=== PATIENT | female | born 1990 | race Caucasian/White ===

== ENCOUNTER 2017-03-29 19:17 | Observation (INO) | payer OTHER ==
[~2017-03-29 19:17] MED LIST: HYDR1TAB91 PO; IBUP-1152 PO; PREN-99 PO
--- NOTE | 2017-04-08 09:43 | PCM.DC.MED ---
Discharge Summary Date of Service Apr 08, 2017 Dates of Hospitalization Date of Hospital Admission Mar 29, 2017 at 19:17 Date of Discharge: Mar 29, 2017 Providers: Admitting Physician: Bibi Vizcarra MD Primary Care Physician: Bibi Vizcarra MD Attending Physician: Bibi Vizcarra MD Diagnosis at Time of Discharge Diagnosis at Time of Discharge Not in labor Hospital Course This is a late third trimester multiparous patient who came in for a labor check. I have no current access to the nurse's notes. I have no recollection of this particular event. She has had some chest pain and workup for PE around the same time, so far negative. She was discharged in stable condition, not in labor. Discharge Medications Discharge Medications Vit/Fe Fumarate/Fa-Expunged Drug, Do ( Multivitamins-Expunged Drug, Do Not) 1 Each Tablet 1 EACH PO DAILY (Reported) As needed Hydrocod/APAP-Expunged, Do Not Renew! (Hydrocod/APAP-Expunged, Do Not Renew!) 1 Ea Tablet 1-2 EA PO Q3 PRN PRN For Pain Prescribed by: NENA VIZCARRA MD IBUPROFEN-Expunged Drug, Do Not Renew! (IBUPROFEN-Expunged Drug, Do Not Renew!) 800 Mg Tablet 800 MG PO Q6 PRN PRN For Pain Prescribed by: MD Carmita JOHN H Edwin MD Apr 08, 2017 09:43
[2017-04-29] MEDS ORDERED: HYDR-4003 PO (10:13)
[2017-04-29] MEDS ORDERED: IBUP-1827 PO (10:13)
== END 2017-03-29 19:56 | disposition home or self-care (01) ==
LOC: INTOOBSV 19:17 → FBC 19:17
PROVIDERS: ADMIT Family Medicine; ATTEND Family Medicine
DX: O60.03 Preterm labor without delivery, third trimester (principal); Z3A.00 Weeks of gestation of pregnancy not specified

== ENCOUNTER 2017-03-29 20:05 | Emergency (ER) | payer OTHER ==
[2017-03-29 20:31] VITALS: BP 126/72; PULSE 100; RESP 16; O2SAT 98
--- NOTE | 2017-03-29 20:39 | ED.REPORT ---
HPI-Chest Pain Under 40 Date of Service Mar 29, 2017 ED Provider: Mynor Gilbert MD A 26 year old, 36 week () female presents to the ED with intermittent, left anterior chest pain that began yesterday. The pain is exacerbated with exertional movements including reaching or lifting. Her pain has persisted since initial onset yesterday. She also reports experiencing SOB and a mild cough that have been present intermittently for the past few weeks. She denies any previous similar symptoms. Per nursing note, the patient admits to a recent extended road trip. Patient denies any new onset lower extremity edema or fever and denies pain with inspiration. Patient had a reassuring pre- term labor check this afternoon. Nursing Notes Stated Complaint: CHEST DISCOMFORT Chief Complaint: Chest Pain Nursing Notes Reviewed: Yes Allergies: Coded Allergies: Cephalosporins (Verified Allergy, Unknown, 03/29/17) Scheduled Vit/Fe Fumarate/Fa-Expunged Drug, Do ( Multivitamins-Expunged Drug, Do Not) 1 Each Tablet 1 EACH PO DAILY Scheduled PRN Hydrocod/APAP-Expunged, Do Not Renew! (Hydrocod/APAP-Expunged, Do Not Renew!) 1 Ea Tablet 1-2 EA PO Q3 PRN PRN For Pain IBUPROFEN-Expunged Drug, Do Not Renew! (IBUPROFEN-Expunged Drug, Do Not Renew!) 800 Mg Tablet 800 MG PO Q6 PRN PRN For Pain General Time Seen by MD: 20:37 Chief Complaint Chest pain Hx Obtained From: Patient Arrived By: Walk-in Sudden in Onset?: No Symptom Duration: Intermittent Location: : Chest left Quality: Painful Radiation: : Does not radiate Migration/Movement: Reports: None Severity: Current: Mild Severity: Maximum: Moderate Associated with: Reports: Cough, non-productive, Shortness of breath, Denies: Fever Pertinent Negative: Pt denies other symptoms Recent Healthcare: No recent hospitalization, Recent doctor visit Past Medical History Past Medical History Notes: PCP: Dr. Bola Vizcarra Past Medical History 36 weeks () Past Surgical History None reported. Smoking History Never Smoker Social History Alcohol Use: Denies alcohol use Drug Use: Denies drug use Other Social History: Good social support, , Local resident Ambulatory Status Independent Review of Systems Constitutional: Denies: Fever Respiratory: Reports: Non-productive cough, Shortness of breath Cardiovascular: Reports: Chest pain, Denies: Edema Complete sys rev & neg: except as marked. Physical Exam Initial Vital Signs Vital Signs (First) Date Time Temp Pulse Resp B/P Pulse Ox O2 Delivery O2 Flow Rate FiO2 03/29/17 20:31 36.7 100 16 126/72 98 Room Air Initial VS: Reviewed Head / Eyes: Atraumatic, Normocephalic, PERRL Extremities: Vascular intact, Neuro intact, No swelling, No tenderness Neurologic: Alert, Oriented, Nonfocal Psychiatric: Mood/affect normal, Behavior normal, Normal thought content General/Constitutional: Awake, Alert, No acute distress Respiratory / Chest: Atraumatic, Breath sounds NL, Breath sounds = bilat, No respiratory distress Cardiovascular: Heart rate NL, Regular rhythm, Heart sounds NL, No gallop, No murmurs, No rubs Abdomen: Atraumatic, Soft, Non-tender, BS normoactive Gravid abdomen Skin: Atraumatic, Color NL, Warm Color / Condition: Positive: Diaphoresis present (Mild) Interpretation & Diagnostics Lab Results Interpretation Result Diagram: 03/29/17210303/29/172103 Test 03/29/17 21:04 White Blood Count 8.9th/mm3 (3.8-10.1) Red Blood Count 4.09mil/mm3 (3.90-5.20) Hemoglobin 12.8g/dL (12.0-15.6) Hematocrit 36.0% (35.0-46.0) Mean Corpuscular Volume 88.0fL (81-100) Mean Corpuscular Hemoglobin 31.3pg (27.0-35.0) Mean Corpuscular Hemoglobin Concent 35.6% (32.0-37.0) Red Cell Distribution Width 13.0% (12.3-15.4) Platelet Count 170bil/L (150-400) Neutrophils (%) (Auto) 64.0% (40-74) Lymphocytes (%) (Auto) 27.6% (14-46) Monocytes (%) (Auto) 7.1% (4-12) Eosinophils (%) (Auto) 1.0% (0-5) Basophils (%) (Auto) 0.1% (0-3) Sodium Level 137mEq/L (134-144) Potassium Level 3.7mEq/L (3.5-5.2) Chloride Level 101mEq/L (97-108) Carbon Dioxide Level 19mmol/L (18-29) Blood Urea Nitrogen 4mg/dL (6-20) Creatinine 0.37mg/dL (0.57-1.00) Estimat Glomerular Filtration Rate 298mL/min (>59) Glucose Level 89mg/dL (60-99) Calcium Level 8.8mg/dL (8.5-10.1) Magnesium Level 1.8mg/dL (1.6-2.6) Total Bilirubin 0.2mg/dL (0.0-1.2) Aspartate Amino Transf (AST/SGOT) 22U/L (0-50) Alanine Aminotransferase (ALT/SGPT) 18U/L (0-32) Alkaline Phosphatase 128U/L (25-150) Troponin T 0.010ug/L (0.0-0.011) Total Protein 6.2g/dL (6.4-8.4) Albumin 3.6g/dL (3.4-5.0) ECG Interpretation ECG Interpretation: Sinus tachycardia Rate 102 bpm Time: 18:52 Interpreted by: ED physician CT Chest Interpretation IMPRESSION: No evidence of pulmonary embolism or dissection. Trace left pleural effusion. Mild splenomegaly, not fully included. Study type: CT pulm angiogram Interpretation / Wet Read by: Interpret - Radiologist ([facility]) Re-Eval/Medical Decision Re-Evaluation/Progress : Time of Eval: 22:45 Patient Status: Condition improved Re-Evaluation/Progress Note: Patient condition is re-evaluated. She is informed of her current results and the intended treatment plan. All questions are addressed. She understands and agrees with the plan. Counseled Regarding: Diagnosis, Lab results, Need for follow-up, When/why to return to ED Discharge & Departure Primary Impression: Chest pain Chest pain type: pleurodynia Qualified Code: R07.81 - Pleurodynia Additional Impression: Weeks of gestation: 36 weeks Qualified Code: Z3A.36 - 36 weeks gestation of Disposition: Home Discharge Condition All VS Reviewed: Yes Condition: Improved Patient Instructions: Chest Pain (ED), (ED) Additional Instructions: Emergency Department evaluation included interview, examination labs ECG and CT scan of chest. No serious cause for chest pain is identified tonight. It is safe to go home and use acetaminophen as needed for pain. Follow-up with your doctor next week. Return to emergency department for increasing shortness of breath fevers frequent vomiting. Referrals: Bibi Vizcarra MD (PCP) Scribe Attestation Portions of this note were transcribed by Jesus Castle. I, Dr. Gilbert, personally performed the history, physical exam and medical decision-making; I reviewed and confirmed the accuracy of the information in the transcribed note. Signed by: Jesus Castle, 03/29/17. copies to: Bibi Vizcarra MD, Donald L MD Mar 29, 2017 20:39 JESUS CASTLE Mar 29, 2017 20:48
[2017-03-29] MEDS ORDERED: 0.9% Sodium Chloride 1,000 ML IV ONE (20:49)
[2017-03-29 21:13] LABS: BASOPHILS % (AUTO) 0.1 % (0-3); MONOCYTES % (AUTO) 7.1 % (4-12); Mean Corpuscular Hemoglobin 31.3 pg (27.0-35.0); Platelet Count 170 bil/L (150-400)
[2017-03-29 21:40] LABS: TROPONIN T 0.01 ug/L (0.0-0.011)
[2017-03-29 21:51] LABS: Magnesium 1.8 mg/dL (1.6-2.6)
[2017-03-29 23:43] VITALS: BP 108/61; PULSE 87; RESP 18; O2SAT 98
--- NOTE | 2017-03-30 08:26 | DRSVH ---
PROCEDURE: CT ANGIO CHEST PULMONARY EMBOLISM ([id number]) INDICATIONS: chest pain TECHNIQUE: After the administration of intravenous contrast, 2 mm thick sections acquired from the pulmonary api jos to the posterior costophrenic angles. 3-dimensional maximum intensity projection (MIP) coronal a nd sagittal reformats were then acquired through the thorax. For radiation dose reduction, the follo wing was used: automated exposure control, adjustment of mA and/or kV according to patient size. COMPARISON: None. FINDINGS: Image quality: Excellent. Pulmonary arteries: Pulmonary arteries are normal in size, and demonstrate no intraluminal filling d efects to suggest central pulmonary embolism. Lungs and pleura: Lungs are clear. Trace left pleural effusions. No pneumothorax. Central and perip heral airways are patent. Mediastinum: Heart size is normal, without pericardial effusion. No mediastinal or hilar adenopathy . Thoracic aorta is normal in caliber and enhancement. Esophagus is normal in caliber, without hiat al hernia. Bones and chest wall: No suspicious bony lesions. Ribs and thoracic spine appear intact throughout. Thyroid gland is normal where seen. No axillary or supraclavicular adenopathy. Abdomen: Possible splenomegaly. Otherwise upper abdominal solid organs appear normal in the early art erial phase of enhancement. IMPRESSION: 1. No CT evidence of acute pulmonary embolus. 2. Trace left pleural effusion. 3. Possible splenomegaly. 4. There are no discrepancies with the preliminary report. Dictated by: Justin Khan M.D. on 03/30/2017 at 8:20 Approved by: Justin Khan M.D. on 03/30/2017 at 8:25
== END 2017-03-29 23:43 | disposition home or self-care (01) ==
LOC: SED 20:05
DX: O99.89 Other specified diseases and conditions complicating pregnancy, childbirth and the puerperium (principal); R07.81 Pleurodynia; R05 Cough; Z3A.36 36 weeks gestation of pregnancy; Z88.1 Allergy status to other antibiotic agents
CPT/HCPCS: 36415; 71275; 80053; 83735; 84484; 85025; 93005; 96360; 99285; J7030; Q9967

== ENCOUNTER 2017-04-04 18:29 | Emergency (ER) | payer OTHER ==
[~2017-04-04] VITALS: Ht 157.5 cm; Wt 79.5 kg
[2017-04-04 18:34] VITALS: BP 125/72; PULSE 112; RESP 16; O2SAT 98
--- NOTE | 2017-04-04 18:42 | ED.REPORT ---
HPI-Chest Pain Under 40 Date of Service Apr 04, 2017 ED Provider: Aman Loving DO This is a very pleasant 26-year-old female who was referred to the emergency department to have bilateral lower extremity venous duplex Dopplers performed. Evidently she has had exertional dyspnea and exertional tachycardia for the last several weeks. She is in the third trimester of an otherwise uncomplicated . She was seen a few days ago here and underwent CT imaging to rule out pulmonary emboli. Pulmonary emboli was ruled out. She had an echocardiogram today. The echocardiogram showed a small pericardial effusion as well as mild D shape flattening of the right ventricle. No evidence of tamponade. Dr. Vizcarra's office reached her and sent her in to get the ultrasound. She denies having any chest pain however she does have tachycardia and dyspnea when she gets up and walks. She has not had a cough. She has not had pleuritic pain. She has not had any hemoptysis. Currently she denies feeling any contractions or any other signs of labor. Nursing Notes Stated Complaint: CHEST PAIN,SHORTNESS OF BREATH Chief Complaint: Respiratory Complaints Nursing Notes Reviewed: Yes Allergies: Coded Allergies: Cephalosporins (Verified Allergy, Unknown, 03/29/17) Scheduled Vit/Fe Fumarate/Fa-Expunged Drug, Do ( Multivitamins-Expunged Drug, Do Not) 1 Each Tablet 1 EACH PO DAILY Scheduled PRN Hydrocod/APAP-Expunged, Do Not Renew! (Hydrocod/APAP-Expunged, Do Not Renew!) 1 Ea Tablet 1-2 EA PO Q3 PRN PRN For Pain IBUPROFEN-Expunged Drug, Do Not Renew! (IBUPROFEN-Expunged Drug, Do Not Renew!) 800 Mg Tablet 800 MG PO Q6 PRN PRN For Pain General Time Seen by MD: 18:41 Chief Complaint Chest pain Hx Obtained From: Patient Arrived By: Walk-in Sudden in Onset?: No Onset Occurred: 1 week ago Symptom Duration: Intermittent Location: : Substernal Quality: Painful Radiation: : Does not radiate Severity: Current: Moderate Severity: Maximum: Moderate Recent Healthcare: Recent doctor visit Similar Sx Previous: Yes Risk Factors )( CAD Risk Stratification Risk factors reviewed TAD Risk Stratification Risk factors reviewed )( PE Risk Stratification Risk factors reviewed HEART Score HEART for MACE: Low index of susp (0), Normal ECG (0), No risk factors known (0 ) HEART for MACE Score: 0-3 (low risk 0.9%-1.7%) Past Medical History Past Medical History Notes: PCP: Dr. Bola Vizcarra Past Medical History 37 weeks Past Surgical History None reported Smoking History Never Smoker Social History Alcohol Use: Denies alcohol use Drug Use: Denies drug use Other Social History: Good social support, , Local resident Ambulatory Status Independent Review of Systems Denies pain with inspiration Constitutional: Denies: Fever Respiratory: Reports: Shortness of breath Cardiovascular: Reports: Dyspnea on exertion, Palpitations, Denies: Orthopnea, Parox nocturnal dyspnea, Syncope GI: Denies: Abdominal pain, Diarrhea Musculoskeletal: Denies: Extremity swelling Skin: Denies Bruising, Denies Diaphoresis Neurologic: Denies: Abnormal movement, Bladder dysfunction Psychiatric: Denies: Agitation Complete sys rev & neg: except as marked. Physical Exam Initial Vital Signs Vital Signs (First) Date Time Temp Pulse Resp B/P Pulse Ox O2 Delivery O2 Flow Rate FiO2 04/04/17 18:34 36.6 112 16 125/72 98 Room Air Initial VS: Reviewed Head / Eyes: Atraumatic, Normocephalic Neck: Supple, Full range of motion Extremities: Vascular intact, Neuro intact Skin: Warm, Dry, No cyanosis Neurologic: Alert, Oriented, Nonfocal Psychiatric: Mood/affect normal, Behavior normal General/Constitutional: Awake, Alert Respiratory / Chest: Atraumatic, Breath sounds NL, Breath sounds = bilat Cardiovascular: Regular rhythm, Heart sounds NL Heart Rate / Rhythm: Positive: Tachycardia No lower extremity edema Abdomen: Atraumatic, Soft Gravid uterus Interpretation & Diagnostics US VENOUS LEG BILATERALLY: IMPRESSION: No evidence of deep venous thrombosis. Dictated by: Juana Worley M.D. on 04/04/2017 at 20:15 Lab Results Interpretation Result Diagram: 04/04/17200404/04/172004 Test 04/04/17 20:05 White Blood Count 9.3th/mm3 (3.8-10.1) Red Blood Count 4.22mil/mm3 (3.90-5.20) Hemoglobin 13.2g/dL (12.0-15.6) Hematocrit 37.1% (35.0-46.0) Mean Corpuscular Volume 87.9fL (81-100) Mean Corpuscular Hemoglobin 31.3pg (27.0-35.0) Mean Corpuscular Hemoglobin Concent 35.6% (32.0-37.0) Red Cell Distribution Width 13.0% (12.3-15.4) Platelet Count 169bil/L (150-400) Neutrophils (%) (Auto) 66.3% (40-74) Lymphocytes (%) (Auto) 24.8% (14-46) Monocytes (%) (Auto) 7.9% (4-12) Eosinophils (%) (Auto) 0.6% (0-5) Basophils (%) (Auto) 0.2% (0-3) D-Dimer 2.25mg/L FEU (<0.50) Sodium Level 136mEq/L (134-144) Potassium Level 3.6mEq/L (3.5-5.2) Chloride Level 101mEq/L (97-108) Carbon Dioxide Level 19mmol/L (18-29) Blood Urea Nitrogen 7mg/dL (6-20) Creatinine 0.49mg/dL (0.57-1.00) Estimat Glomerular Filtration Rate 215mL/min (>59) Glucose Level 101mg/dL (60-99) Calcium Level 8.6mg/dL (8.5-10.1) Total Bilirubin 0.3mg/dL (0.0-1.2) Aspartate Amino Transf (AST/SGOT) 26U/L (0-50) Alanine Aminotransferase (ALT/SGPT) 24U/L (0-32) Alkaline Phosphatase 141U/L (25-150) Troponin T < 0.010ug/L (0.0-0.011) Pro-B-Type Natriuretic Peptide 23.05pg/mL (0-130) Total Protein 6.2g/dL (6.4-8.4) Albumin 3.6g/dL (3.4-5.0) Lab values outside NL range: no clinical significance. General Lab Results Interp 1: CBC normal, Cardiac markers NL Pulse Oximetry Interpretation Pulse Oximetry: Pulse Ox normal (99 on room air.) ECG Interpretation ECG Interpretation: Sinus tachycardia with a rate of [address] [place]ASHA or heart strain Time: 19:00 Normal ECG Interpretation: Normal ECG w/ rate of... Re-Eval/Medical Decision Med Decision/Clinical Course Bilateral venous duplex ultrasounds are negative for DVT. Laboratory work was reassuring. Cardiac evaluation was negative. Normal troponin. EKG reassuring. D-dimer elevated so therefore the ultrasound was indicated. She showing no signs or symptoms currently of pulmonary emboli and she just underwent CT angiogram testing 2 days ago. This should not be repeated at this time. Her symptoms are orthostatic in nature. She received a liter of IV fluid and her heart rate went from 120 to about 99. She does still get a little tachycardic when she gets up and walks. I think this is more to do with her being in third trimester . She does not exhibit any signs of cardiac tamponade. She does not have muffled heart sounds. She does not have JVD. And she has not been hypotensive. I consulted with our poultry helper Dr. Barksdale as well as Dr. Cervantes. At this time no further diagnostics are recommended. It was recommended however that she be discharged from the department "to labor and delivery for monitoring. She will follow up closely with Dr. Cervantes. Source of Hx: Old records Consultation #1: Referral / Consult Name: Bibi Vizcarra MD Consulted With: Primary care physician Call Returned at: 18:55 Note: Dr. Bolton left a message recommending to "get bilateral venous dopplers." Consultation #2: Referral / Consult Name: Bibi Vizcarra MD Consulted With: Primary care physician Call Returned at: 21:37 Bookbinding Machine Operator: Agrees with eval, Agrees with plan Note: Discussed pt's case. Agrees with plan to referr to labor and delivery. Consultation #3: Referral / Consult Name: Monica Barksdale MD Consulted With: Cardiology Call Returned at: 21:40 Bookbinding Machine Operator: Agrees with eval, Agrees with plan Note: Discussed pt's case. Counseled Regarding: Diagnosis, Lab results, Need for follow-up, When/why to return to ED Discharge & Departure Primary Impression: Chest pain Chest pain type: unspecified Qualified Code: R07.9 - Chest pain, unspecified Additional Impressions: Pericardial effusion COBIAN (dyspnea on exertion) Disposition: Home Discharge Condition All VS Reviewed: Yes Condition: Stable Patient Instructions: Chest Pain (ED), Pericardial Effusion (ED) Additional Instructions: Proceed to Labor and Delivery. The ultrasound of the legs did not demonstrate blood clots. Your EKG looks good. Your heart blood tests are normal. I consulted with our poultry helper as well as Dr. Cervantes. Recommendations are for you to proceed to labor and delivery for monitoring and then to follow-up with Dr. Cervantes. If he starts having any pain when he takes a deep breath or if he coughed any blood or if any worsening or new symptoms come back to the emergency Department. Recent CAT scan of the chest did not show evidence of a blood clot. Do not hesitate to return if any problems or any new or worrisome symptoms. Referrals: Bibi Vizcarra MD (PCP) Scribe Attestation Portions of this note were transcribed by Mely Lipscomb. I, Dr. Loving personally performed the history, physical exam and medical decision-making; I reviewed and confirmed the accuracy of the information in the transcribed note. Signed by : Olivia Trejo, 04/04/17. copies to: Bibi Vizcarra MD, Todd P DO Apr 04, 2017 18:42 Mely Mclaughlin Apr 04, 2017 18:53
[2017-04-04 20:14] LABS: BASOPHILS % (AUTO) 0.2 % (0-3); EOSINOPHILS % (AUTO) 0.6 % (0-5); MONOCYTES % (AUTO) 7.9 % (4-12); Mean Corpuscular Hemoglobin 31.3 pg (27.0-35.0); Mean Corpuscular Volume 87.9 fL (81-100); NEUTROPHILS % (AUTO) 66.3 % (40-74); Platelet Count 169 bil/L (150-400)
--- NOTE | 2017-04-04 20:17 | DRSVH ---
PROCEDURE: US VENOUS LEG DUPLEX BILATERAL INDICATIONS: ,chest pain, abnormal echo TECHNIQUE: Real-time imaging, as well as color and pulse Doppler interrogation, were performed of the deep veins of both legs from the inguinal ligament to the popliteal fossa. COMPARISON: None. FINDINGS: The deep veins are normally compressible, and free of intraluminal thrombus. Color and pu lse Doppler demonstrate normal phasic intravascular flow. There is normal augmentation response to d istal compression maneuver. IMPRESSION: No evidence of deep venous thrombosis. Dictated by: Juana Worley M.D. on 04/04/2017 at 20:15 Approved by: Juana Worley M.D. on 04/04/2017 at 20:15
[2017-04-04 20:47] LABS: TROPONIN T < 0.010 ug/L (0.0-0.011)
[2017-04-04 20:53] VITALS: BP 106/66; PULSE 104; RESP 16; O2SAT 97
[2017-04-04] MEDS ORDERED: 0.9% Sodium Chloride 1,000 ML IV ONE (21:00)
== END 2017-04-04 22:05 | disposition home or self-care (01) ==
LOC: SED 18:29
DX: O99.413 Diseases of the circulatory system complicating pregnancy, third trimester (principal); I31.3 Pericardial effusion (noninflammatory); R06.00 Dyspnea, unspecified; R07.2 Precordial pain; Z88.1 Allergy status to other antibiotic agents; Z3A.37 37 weeks gestation of pregnancy
CPT/HCPCS: 36415; 80053; 83880; 84484; 85025; 85378; 93005; 93970; 96360; 99285; G0463; J7030